=== PATIENT | male | born 2000 | race Caucasian/White ===

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

== ENCOUNTER 2019-04-13 16:51 | Emergency (ER) | payer MEDICAID ==
[~2019-04-13] VITALS: Ht 177.8 cm; Wt 136.1 kg
[2019-04-13 16:58] VITALS: BP 162/84
--- NOTE | 2019-04-13 17:04 | NUR ---
PT AMBULATED TO ER BED 10
--- NOTE | 2019-04-13 17:10 | NUR ---
C/O BACK PAIN X 2 DAYS. PT STATES ON SUNDAY, HE GOT OUT OF THE SHOWER AND WAS GETTING DRESSED WHEN HE FELT A SUDDEN STABBING PAIN IN HIS LOWER BACK AND COULDNT STAND UP. PT IS AMBULATORY WITH STEADY GAIT, BUT STATES HE STILL FEELS 8/10 PAIN. PATIENT POSITIONED FOR COMFORT; HOB ELEVATED; BEDRAILS UP X1; BED DOWN. ER MD MADE AWARE OF PT STATUS.
[2019-04-13] MEDS ORDERED: KETOROLAC 60 MG/2 ML VIAL IM ONE (17:40)
[2019-04-13 18:44] VITALS: BP 134/81
== END 2019-04-13 18:30 | disposition home or self-care (01) ==
LOC: MED 16:51
DX: M54.41 Lumbago with sciatica, right side (principal)
CPT/HCPCS: 96372; 99283; J1885

== ENCOUNTER 2019-07-25 18:29 | Emergency (ER) | payer MEDICAID ==
[~2019-07-25] VITALS: Ht 182.9 cm; Wt 131.5 kg
[2019-07-25 18:46] VITALS: BP 165/98
--- NOTE | 2019-07-25 18:54 | NUR ---
PT AMBULATED TO ED BED 02
--- NOTE | 2019-07-25 19:11 | NUR ---
C/O NOSEBLEED ON AND OFF 1 HR AGO. NO ACTIVE BLEEDING AT THIS TIME.DENIES INJURY NOR TRAUMA. DENIES PMH PATIENT STATES HEADACHE OF 5/10 AT THIS TIME. PATIENT POSITIONED FOR COMFORT; HOB ELEVATED; BEDRAILS UP X1; BED DOWN. ER MD MADE AWARE OF PT STATUS.
--- NOTE | 2019-07-25 19:13 | NUR ---
Pt report given to MAR BLACKWELL. Transfer of care at this time.
[2019-07-25 19:38] VITALS: BP 165/98
--- NOTE | 2019-07-25 19:38 | NUR ---
Patient discharged with v/s stable. Written and verbal after care instructions given and explained. Patient alert, oriented and verbalized understanding of instructions. Ambulatory with steady gait. All questions addressed prior to discharge. ID band removed. Patient advised to follow up with PMD. Rx of AFRIN PRIGINAL NASAL SPRAY given. Patient educated on indication of medication including possible reaction and side effects. Opportunity to ask questions provided and answered.
== END 2019-07-25 19:38 | disposition home or self-care (01) ==
LOC: MED 18:29
DX: R04.0 Epistaxis (principal)
CPT/HCPCS: 99282

== ENCOUNTER 2021-05-15 16:21 | Emergency (ER) | payer BC, MEDICAID ==
[~2021-05-15] VITALS: Ht 182.9 cm; Wt 127.9 kg
[2021-05-15 16:37] VITALS: BP 153/87
[2021-05-15] MEDS ORDERED: KETOROLAC 30 MG/ML VIAL IVP ONE (16:50)
--- NOTE | 2021-05-15 17:08 | NUR ---
20/M BIB SELF WITH C/O EAR AND THROAT PAIN X4 DAYS. PATIENT STATES HE HAS BEEN TAKING AMOXICILLIN AND IBUPROFEN WITH NO RELIEF. STATES PAIN HAS BEEN WORSENING, PROVOKED WITH TALKING AND SWALLOWING. REPORTS 10/10 SHARP PAIN, DENIES HEADACHE, CP, SOB, FEVER, CHILLS, N/V/D. NO SIGNS OF RESPIRATORY DISTRESS, PATIENT ALERT AND ORIENTED X4 ANSWERING QUESTIONS APPROPRIATELY.
[2021-05-15 17:19] LABS: BASOPHILS # (AUTO) 0.1 K/uL (0.00-0.22); BASOPHILS % (AUTO) 0.6 % (0.0-2.0); EOSINOPHILS # (AUTO) 0.3 K/uL (0-0.4); EOSINOPHILS % (AUTO) 2.3 % (0.0-4.0); HEMATOCRIT 51.2 % (36-52); HEMOGLOBIN 17.4 g/dL (12.0-18.0); LYMPHOCYTES # (AUTO) 3.3 K/uL (2.0-11.5); LYMPHOCYTES % (AUTO) 22.6 % (20.5-51.1); MEAN CORPUSCULAR HEMOGLOBIN 29 pg (27-31); MEAN CORPUSCULAR HGB CONC 34 g/dL (33-37); MEAN CORPUSCULAR VOLUME 85.6 fL (80-94); MONOCYTES # (AUTO) 1.1 K/uL (0.8-1.0); MONOCYTES % (AUTO) 7.7 % (1.7-9.3); NEUTROPHILS # (AUTO) 9.9 K/uL (1.8-7.7); NEUTROPHILS % (AUTO) 66.8 % (42.2-75.2); PLATELET COUNT (AUTO) 303 K/uL (140-450); RED BLOOD CELL COUNT(AUTO) 5.99 MIL/uL (4.20-6.10); WHITE BLOOD COUNT (AUTO) 14.8 K/uL (4.8-10.8)
--- NOTE | 2021-05-15 17:28 | NUR ---
PATIENT AMBULATED VIA WHEELCHAIR TO CT
[2021-05-15 17:37] LABS: ALBUMIN 3.6 g/dL (3.4-5.0); ANION GAP 12.6 (8-16); CARBON DIOXIDE 29.5 mmol/L (21-32); POTASSIUM 4.1 mmol/L (3.5-5.1); TOTAL BILIRUBIN 0.6 mg/dL (0.0-1.0)
--- NOTE | 2021-05-15 18:30 | NUR ---
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 VSS
[2021-05-15] MEDS ORDERED: LIDOCAINE/EPI 1% 1:100000 20 ML VIAL INJ ONE (18:50)
[2021-05-15] MEDS ORDERED: BENZOCAINE 20% 57 GM CAN MC ONE ×2 (18:54→18:55)
--- NOTE | 2021-05-15 19:16 | NUR ---
Pt report given to ROSALVA FITZGERALD. Transfer of care at this time.
--- NOTE | 2021-05-15 19:17 | NUR ---
Pt report given to AMILCAR BLACKWELL. Transfer of care at this time.
[2021-05-15] MEDS ORDERED: PRED20TA5 PO (19:20)
[2021-05-15] MEDS ORDERED: AMOX-1000 PO (19:20)
--- NOTE | 2021-05-15 19:25 | NUR ---
ER MD AT BEDSIDE FOR PROCEDURE
[2021-05-15] MEDS ORDERED: ACET-8386 PO (19:31)
--- NOTE | 2021-05-15 19:43 | NUR ---
PATIENT CLEARED FOR DISCHARGE AT THIS TIME. PATIENT HAS NOFURTHER COMPLAINTS OR CONCERNS AND REPORTS RELIEF OF SYMPTOMS FOLLOWING PROCEDURE. DISCHARGE TEACHING AND RX PROVIDED.
[2021-05-15 19:46] VITALS: BP 137/66
== END 2021-05-15 19:43 | disposition home or self-care (01) ==
LOC: MED 16:21
DX: J36 Peritonsillar abscess (principal); Z79.899 Other long term (current) drug therapy
CPT/HCPCS: 36415; 42700; 70491; 80053; 85025; 96374; 99285; J1885; J2001; Q9967

== ENCOUNTER 2022-01-28 09:21 | Emergency (ER) | payer BC ==
[~2022-01-28] VITALS: Ht 182.9 cm; Wt 133.8 kg
[~2022-01-28 09:21] MED LIST: ACET-8386 PO; AMOX-1000 PO; PRED20TA5 PO
[2022-01-28 09:55] VITALS: BP 143/96
--- NOTE | 2022-01-28 10:04 | NUR ---
PATIENT AMBULATED TO BED 4.
--- NOTE | 2022-01-28 10:34 | NUR ---
21 y/o male bib self with c/o left thigh to lower back pain. Patient states pain is 10/10. Per patient his chiropractor told him he has sciatica. Patient also feels his right side starting to pull but has no pain on this side. Patient denies any fall or injury. Medical History: Denies NKDA
--- NOTE | 2022-01-28 11:26 | NUR ---
Dr. Simons evaluating patient at bedside.
[2022-01-28] MEDS ORDERED: CYCLOBENZAPRINE 10 MG TAB PO ONE (11:30)
[2022-01-28] MEDS ORDERED: ACETAMINOPHEN EXTRA STRENGTH 500 MG TAB PO ONE (11:30)
[2022-01-28] MEDS ORDERED: KETOROLAC 60 MG/2 ML VIAL IM ONE (11:30)
[2022-01-28] MEDS ORDERED: CYCL-711 PO (11:31)
[2022-01-28] MEDS ORDERED: ACET-10509 PO (11:31)
[2022-01-28] MEDS ORDERED: GABA300C PO (11:31)
[2022-01-28] MEDS ORDERED: IBUP-2213 PO (11:31)
[2022-01-28 12:13] VITALS: BP 143/72
--- NOTE | 2022-01-28 12:13 | NUR ---
Patient discharged with v/s stable. Written and verbal after care instructions given. Patient alert, oriented and verbalized understanding of instructions. Ambulatory with steady gait. All questions addressed prior to discharge. ID band removed. Patient advised to follow up with PMD. Rx of Tylenol, Flexeril, Gabapentin and Ibuprofen given. Opportunity to ask questions provided and answered. WORK NOTE HANDED TO PATIENT.
--- NOTE | 2022-01-28 12:14 | NUR ---
Chart checked and completed. The patient's care was reviewed and supervised by Morena Beck RN.
== END 2022-01-28 12:13 | disposition home or self-care (01) ==
LOC: MED 09:21
DX: M54.40 Lumbago with sciatica, unspecified side (principal); Z79.899 Other long term (current) drug therapy
CPT/HCPCS: 81002; 96372; 99283; J1885

== ENCOUNTER 2022-08-25 10:31 | Emergency (ER) | payer BC ==
[~2022-08-25] VITALS: Ht 182.9 cm; Wt 127.0 kg
[~2022-08-25 10:31] MED LIST changes: +ACET-10509 PO; -ACET-8386 PO; +ACET-8905 PO; +CYCL-711 PO; +GABA300C PO; +IBUP-2213 PO
[2022-08-25 11:01] VITALS: BP 141/89
--- NOTE | 2022-08-25 11:35 | NUR ---
22/M WALKED IN C/O SORE THROAT, COUGH, AND CONGESTION ONSET 2 DAYS. AFEBRILE. PT ALSO REPORTS LEFT EARACHE. DENIES ANY DISCHARGE FROM EAR. AAO4, AMBULATORY, VITALS STABLE. PMH: DENIES
[2022-08-25] MEDS ORDERED: DEXAMETHASONE 10 MG/ML VIAL IM ONE (12:20)
[2022-08-25] MEDS ORDERED: IBUPROFEN 600 MG TAB PO ONE (12:25)
[2022-08-25] MEDS ORDERED: AMOX-1230 PO (12:52)
[2022-08-25] MEDS ORDERED: IBUP-2213 PO (12:52)
== END 2022-08-25 12:55 | disposition home or self-care (01) ==
LOC: MED 10:31
DX: J03.90 Acute tonsillitis, unspecified (principal); Z20.822 Contact with and (suspected) exposure to COVID-19; Z79.899 Other long term (current) drug therapy; Z79.1 Long term (current) use of non-steroidal anti-inflammatories (NSAID); Z79.2 Long term (current) use of antibiotics; Z79.891 Long term (current) use of opiate analgesic
CPT/HCPCS: 87081; 87426; 87804; 96372; 99283; J1100